=== PATIENT | male | born 1975 | race Caucasian/White ===

== ENCOUNTER 2023-02-28 15:30 | Outpatient (CLI) | payer OTHER, SELFPAY ==
--- NOTE | ~2023-02-28 | US_ITS ---
EXAMINATION: US scrotum doppler DATE: 02/28/2023 16:50 INDICATION: Other specified disorders of the male genital organs. Right testicular lump. TECHNIQUE: Grayscale and Doppler ultrasound images of the testes were obtained. COMPARISON: None. FINDINGS: The right testis measures 5.6 x 2.8 x 3.4 cm. The left testis measures 5.1 x 2.4 x 2.8 cm. There is normal vascular flow to both testes. The right epididymis demonstrates a 4.3 cm cyst. The le ft epididymis is normal with normal vascular flow. There is a small right hydrocele. IMPRESSION: 1. 4.3 cm cyst in right epididymis. 2. Small right hydrocele. Reviewed, dictated and finalized at location E.
== END 2023-02-28 15:31 | disposition home or self-care (01) ==
PROVIDERS: PCP Internal Medicine; Visit Provider Internal Medicine
DX: N43.3 Hydrocele, unspecified (principal); N50.3 Cyst of epididymis
CPT/HCPCS: 76870; 93976